=== PATIENT | female | born 1955 | race Two or more races ===

== ENCOUNTER 2017-09-05 12:06 | Inpatient (IN) | payer OTHER ==
[~2017-09-05] VITALS: Ht 157.5 cm; Wt 70.5 kg
[2017-09-05 13:06] LABS: Hemoglobin 7.8 g/dL (12.2-16.2); Mean Corpuscular Hgb Conc. 31.8 g/dL (32.0-36.0)
[2017-09-05 13:09] LABS: Hematocrit 24.4 % (36.0-46.0); Mean Corpuscular Hemoglobin 30.6 pg (28.0-32.0); Mean Corpuscular Volume 96.5 fL (80.0-100.0); Mean Platelet Volume 8.1 fL (6.9-10.8); Platelet Count (auto) 128 10^3/uL (140-450); Red Cell Distribution Width 15.9 % (11.8-14.3)
[2017-09-05 13:31] LABS: White Blood Cell 1.5 10^3/uL (4.4-10.8)
[2017-09-05 13:32] LABS: Metamyelocytes % 0; Myelocytes % 0; Promyelocytes % 0; Reactive Lymphocytes 0
[2017-09-05 13:38] LABS: Albumin 2.9 g/dL (3.4-5.0); BUN/Creatinine Ratio 12.8; Bilirubin, Total 0.4 mg/dL (0.2-1.0); Calcium 8.2 mg/dL (8.5-10.1); Potassium 3.6 mmol/L (3.5-5.1); Total Protein 6.4 g/dL (6.4-8.2)
[2017-09-05 16:12] LABS: Urine Bilirubin Negative (Negative); Urine Blood 1+ /uL (Negative); Urine Color Yellow (Yellow); Urine Glucose Normal (Normal); Urine Ketone Negative (Negative); Urine Nitrite Negative (Negative); Urine RBC <1 /hpf (0 - 4); Urine Squamous Epithelial Cell FEW /hpf (<5); Urine Urobilinogen Normal (Negative)
[2017-09-05] MEDS ORDERED: SODIUM CHLORIDE 0.9% 1,000 ML IV ONE (16:29)
[2017-09-05] MEDS ORDERED: cefTRIAXone 1GM/50ML D5W 50 ML IV ONE (16:30)
[2017-09-05] MEDS ORDERED: HYDROcodone-ACET 5/325MG TAB PO ONE (18:00)
[2017-09-05] MEDS ORDERED: TEMAZEPAM 15 MG CAP PO PRN (18:30)
[2017-09-05] MEDS ORDERED: LACTULOSE 20Gm/30ML SOLN PO PRN (18:30)
[2017-09-05] MEDS ORDERED: methylPREDNISolone SOD SUCC 40 MG/ML VL IV ONE (18:30)
[2017-09-05] MEDS ORDERED: MORPHINE SULF INJ 2 MG/ML SYRINGE 1ML IV PRN ×2 (18:30)
[2017-09-05] MEDS ORDERED: ALBUTEROL SULF 2.5 MG/0.5ML(0.5%) NEB SOLN NEB PRN (18:30)
[2017-09-05] MEDS ORDERED: LORazepam 0.5 MG TAB PO PRN (18:30)
[2017-09-05] MEDS ORDERED: ACETAMINOPHEN 500 MG TAB PO PRN (18:30)
[2017-09-05] MEDS ORDERED: PROMETHAZINE HCL 25 MG/ML 1ML IV PRN (18:30)
[2017-09-05] MEDS ORDERED: NITROGLYCERIN 0.4 MG SL TAB SL PRN (18:30)
[2017-09-05] MEDS ORDERED: HYDROcodone-ACET 5/325MG TAB PO PRN (18:30)
[2017-09-05 18:54] LABS: Burr Cells FEW; Platelet Estimate Decreased; Tear Drop Cells FEW
[2017-09-05] MEDS ORDERED: MYCO500T3 PO (18:55)
[2017-09-05] MEDS ORDERED: METH4TAB7 PO (18:55)
[2017-09-05] MEDS ORDERED: VITA400C49 PO (18:55)
[2017-09-05] MEDS ORDERED: HYDR200T36 PO (18:55)
[2017-09-05] MEDS ORDERED: PAR20T PO (18:58)
[2017-09-05] MEDS ORDERED: HYDR-391 PO (18:58)
[2017-09-05] MEDS ORDERED: AMOX250C3 PO (18:58)
[2017-09-05] MEDS ORDERED: METO-158 PO (18:58)
[2017-09-05] MEDS ORDERED: FOLI1TAB6 PO (19:04)
[2017-09-05] MEDS ORDERED: DILT180C88 PO (19:04)
[2017-09-05] MEDS ORDERED: OMEP20CA74 PO (19:04)
[2017-09-05] MEDS ORDERED: PYRI1TAB3 PO (19:04)
[2017-09-05] MEDS ORDERED: CHOL200021 PO (19:04)
[2017-09-05] MEDS ORDERED: FERR1TAB5 PO (19:04)
[2017-09-05] MEDS ORDERED: DILTIAZEM HCL 180MG ER CAP PO ONE (19:45)
[2017-09-05] MEDS: SODIUM CHLORIDE 0.9% 1,000 ML IV SCH (20:13)
[2017-09-05] MEDS: CLINDAMYCIN 600MG IV 50 ML IV SCH (22:18)
[2017-09-05] MEDS: METOPROLOL TARTRATE 50 MG TAB PO SCH (22:19)
[2017-09-06] VITALS (7 sets, daily range): BP systolic 111–143; BP diastolic 62–77
[2017-09-06] MEDS: SODIUM CHLORIDE 0.9% 1,000 ML IV SCH ×3 (04:16→15:00)
[2017-09-06 05:53] LABS: Hemoglobin 7.5 g/dL (12.2-16.2); Mean Corpuscular Volume 95.4 fL (80.0-100.0); Platelet Count (auto) 127 10^3/uL (140-450)
[2017-09-06 05:55] LABS: Mean Corpuscular Hgb Conc. 32.5 g/dL (32.0-36.0); Mean Platelet Volume 7.9 fL (6.9-10.8); Red Cell Distribution Width 15.8 % (11.8-14.3)
[2017-09-06] MEDS: CLINDAMYCIN 600MG IV 50 ML IV SCH ×3 (06:14→22:18)
[2017-09-06 06:16] LABS: Metamyelocytes % 0; Myelocytes % 0; Promyelocytes % 0; Reactive Lymphocytes 0
[2017-09-06 06:17] LABS: White Blood Cell 0.9 10^3/uL (4.4-10.8)
[2017-09-06 06:25] LABS: Albumin 2.4 g/dL (3.4-5.0); Bilirubin, Total 0.2 mg/dL (0.2-1.0); Calcium 7.7 mg/dL (8.5-10.1); Potassium 3.7 mmol/L (3.5-5.1); Total Protein 5.7 g/dL (6.4-8.2)
[2017-09-06] MEDS ORDERED: INFLUENZA QUAD 2017-2018 0.5 ML SYRG IM ONE (07:30)
[2017-09-06 08:47] LABS: Burr Cells FEW; Ovalocytes FEW; Platelet Estimate Decreased; Tear Drop Cells FEW
[2017-09-06 08:48] LABS: Large Platelets FEW
[2017-09-06] MEDS: LEVOFLOXACIN 500MG 100 ML IV SCH (09:59)
[2017-09-06] MEDS: methylPREDNISolone SOD SUCC 40 MG/ML VL IV SCH ×2 (10:00→22:18)
[2017-09-06] MEDS: METOPROLOL TARTRATE 50 MG TAB PO SCH ×2 (10:01→22:19)
[2017-09-06] MEDS: DILTIAZEM HCL 180MG ER CAP PO SCH (10:01)
[2017-09-06] MEDS ORDERED: PANTOPRAZOLE 40 MG TAB PO ONE (15:15)
[2017-09-07 05:00] VITALS: BP 147/74
[2017-09-07] MEDS: SODIUM CHLORIDE 0.9% 1,000 ML IV SCH ×2 (06:02→17:45)
[2017-09-07] MEDS: CLINDAMYCIN 600MG IV 50 ML IV SCH (06:02)
[2017-09-07 07:21] LABS: Hemoglobin 7.5 g/dL (12.2-16.2); Mean Platelet Volume 8.1 fL (6.9-10.8); Red Cell Distribution Width 15.8 % (11.8-14.3); White Blood Cell 2.2 10^3/uL (4.4-10.8)
[2017-09-07 07:24] LABS: Mean Corpuscular Hemoglobin 31.1 pg (28.0-32.0); Mean Corpuscular Hgb Conc. 32.7 g/dL (32.0-36.0); Platelet Count (auto) 190 10^3/uL (140-450)
[2017-09-07 07:35] LABS: BUN/Creatinine Ratio 17.3; Calcium 7.3 mg/dL (8.5-10.1); Magnesium 1.4 mg/dL (1.6-2.6); Potassium 3.6 mmol/L (3.5-5.1)
[2017-09-07 07:44] LABS: Albumin 2.6 g/dL (3.4-5.0); BUN/Creatinine Ratio 17.2; Bilirubin, Total 0.2 mg/dL (0.2-1.0); Calcium 7.5 mg/dL (8.5-10.1); Potassium 3.7 mmol/L (3.5-5.1); Total Protein 6.1 g/dL (6.4-8.2)
[2017-09-07 07:55] LABS: Metamyelocytes % 0; Myelocytes % 0; Promyelocytes % 0; Reactive Lymphocytes 0
[2017-09-07 09:00] VITALS: BP 145/71
[2017-09-07] MEDS: methylPREDNISolone SOD SUCC 40 MG/ML VL IV SCH ×2 (10:00→21:56)
[2017-09-07] MEDS: LEVOFLOXACIN 500MG 100 ML IV SCH (10:01)
[2017-09-07] MEDS: METOPROLOL TARTRATE 50 MG TAB PO SCH ×2 (10:01→21:56)
[2017-09-07] MEDS: PANTOPRAZOLE 40 MG TAB PO SCH (10:01)
[2017-09-07] MEDS: DILTIAZEM HCL 180MG ER CAP PO SCH (10:02)
[2017-09-07 11:02] LABS: Platelet Estimate Adequate
[2017-09-07 11:03] LABS: Burr Cells FEW; Ovalocytes FEW; Tear Drop Cells FEW
[2017-09-07 13:00] VITALS: BP 152/73
[2017-09-07] MEDS: MAGNESIUM SULFATE 1GM/100ML 100 ML IV SCH ×2 (13:02→14:33)
[2017-09-07 17:03] VITALS: BP 144/71
[2017-09-07 23:02] VITALS: BP 160/71
[2017-09-08] MEDS: cloNIDine HCL 0.1 MG TAB PO PRN ×3 (00:23→23:09)
[2017-09-08] MEDS: SODIUM CHLORIDE 0.9% 1,000 ML IV SCH ×3 (03:45→23:45)
[2017-09-08 05:33] VITALS: BP 163/70
[2017-09-08 06:08] LABS: Erythropoietin 8.9 mIU/mL (2.6-18.5)
[2017-09-08 07:04] LABS: Basophils # (auto) 0 uL; Basophils % (auto) 0.2 % (0.0-2.0); Eosinophils # (auto) 0 uL; Hemoglobin 7.1 g/dL (12.2-16.2); Lymphocytes # (auto) 0.7 uL; Mean Corpuscular Volume 94.5 fL (80.0-100.0); Monocytes # (auto) 0.6 uL; Nucleated Red Blood Cells % 0.3 %; Platelet Count (auto) 193 10^3/uL (140-450)
[2017-09-08 07:06] LABS: Hematocrit 21.6 % (36.0-46.0); Lymphocytes % (auto) 15.2 % (10.0-50.0); Mean Corpuscular Hemoglobin 30.9 pg (28.0-32.0); Mean Corpuscular Hgb Conc. 32.7 g/dL (32.0-36.0); Mean Platelet Volume 7.9 fL (6.9-10.8); Monocytes % (auto) 13.7 % (0.0-12.0); Neutrophils % (auto) 70.9 % (37.0-80.0); Red Cell Distribution Width 15.6 % (11.8-14.3); White Blood Cell 4.3 10^3/uL (4.4-10.8)
[2017-09-08 07:22] LABS: BUN/Creatinine Ratio 21.8; Calcium 7.6 mg/dL (8.5-10.1); Potassium 3.3 mmol/L (3.5-5.1)
[2017-09-08 09:00] VITALS: BP 156/75
[2017-09-08] MEDS: PANTOPRAZOLE 40 MG TAB PO SCH (10:44)
[2017-09-08] MEDS: METOPROLOL TARTRATE 50 MG TAB PO SCH ×2 (10:45→21:59)
[2017-09-08] MEDS: LEVOFLOXACIN 500MG 100 ML IV SCH (10:46)
[2017-09-08] MEDS: DILTIAZEM HCL 180MG ER CAP PO SCH (10:46)
[2017-09-08] MEDS: methylPREDNISolone SOD SUCC 40 MG/ML VL IV SCH ×2 (10:47→21:59)
[2017-09-08 11:43] VITALS: BP 157/74
[2017-09-08 17:01] VITALS: BP 148/73
[2017-09-08 21:56] VITALS: BP 159/68
[2017-09-09 05:00] VITALS: BP 179/77
[2017-09-09] MEDS: cloNIDine HCL 0.1 MG TAB PO PRN (05:43)
[2017-09-09 05:46] LABS: Hematocrit 23.7 % (36.0-46.0); Hemoglobin 7.7 g/dL (12.2-16.2); Mean Corpuscular Hemoglobin 30.8 pg (28.0-32.0); Mean Corpuscular Hgb Conc. 32.3 g/dL (32.0-36.0); Mean Corpuscular Volume 95.4 fL (80.0-100.0); Mean Platelet Volume 7.8 fL (6.9-10.8); Platelet Count (auto) 207 10^3/uL (140-450); Red Cell Distribution Width 15.6 % (11.8-14.3); White Blood Cell 6.4 10^3/uL (4.4-10.8)
[2017-09-09 05:48] LABS: Promyelocytes % 0; Reactive Lymphocytes 0
[2017-09-09 06:14] LABS: Albumin 2.3 g/dL (3.4-5.0); BUN/Creatinine Ratio 26.2; Bilirubin, Total 0.1 mg/dL (0.2-1.0); Calcium 7.1 mg/dL (8.5-10.1); Potassium 4.3 mmol/L (3.5-5.1); Total Protein 5.2 g/dL (6.4-8.2)
[2017-09-09 08:00] VITALS: BP 183/86
[2017-09-09] MEDS ORDERED: ALPRAZolam 0.5 MG TAB PO PRN (08:15)
[2017-09-09] MEDS: SODIUM CHLORIDE 0.9% 1,000 ML IV SCH ×2 (08:15→21:35)
[2017-09-09 08:53] VITALS: BP 171/75
[2017-09-09] MEDS ORDERED: hydrALAZINE HCL 20 MG/ML VL IV PRN (09:00)
[2017-09-09 09:41] LABS: Metamyelocytes % 1; Myelocytes % 1; Platelet Estimate Adequate
[2017-09-09 09:42] LABS: Burr Cells MODERATE; Schistocytes FEW; Tear Drop Cells FEW
[2017-09-09 09:43] LABS: Ovalocytes FEW
[2017-09-09] MEDS: LEVOFLOXACIN 500MG 100 ML IV SCH (10:26)
[2017-09-09] MEDS: DILTIAZEM HCL 180MG ER CAP PO SCH (10:27)
[2017-09-09] MEDS: PANTOPRAZOLE 40 MG TAB PO SCH (10:28)
[2017-09-09] MEDS: METOPROLOL TARTRATE 50 MG TAB PO SCH ×2 (10:28→22:13)
[2017-09-09 12:00] VITALS: BP 152/75
[2017-09-09 13:06] LABS: Haptoglobin 271 mg/dL (34-200)
[2017-09-09 17:00] VITALS: BP 114/58
[2017-09-09 22:00] VITALS: BP 151/76
[2017-09-10 05:00] VITALS: BP 156/71
[2017-09-10 06:03] LABS: Mean Corpuscular Hgb Conc. 32.3 g/dL (32.0-36.0)
[2017-09-10 06:05] LABS: Hematocrit 25.8 % (36.0-46.0); Hemoglobin 8.3 g/dL (12.2-16.2); Mean Corpuscular Hemoglobin 30.2 pg (28.0-32.0); Mean Corpuscular Volume 93.5 fL (80.0-100.0); Mean Platelet Volume 7.6 fL (6.9-10.8); Platelet Count (auto) 240 10^3/uL (140-450); Red Cell Distribution Width 15.6 % (11.8-14.3); White Blood Cell 11.4 10^3/uL (4.4-10.8)
[2017-09-10 06:12] LABS: Promyelocytes % 0; Reactive Lymphocytes 0
[2017-09-10 06:39] LABS: Albumin 2.3 g/dL (3.4-5.0); BUN/Creatinine Ratio 29.1; Bilirubin, Total 0.2 mg/dL (0.2-1.0); Calcium 7.3 mg/dL (8.5-10.1); Potassium 4.2 mmol/L (3.5-5.1); Total Protein 4.9 g/dL (6.4-8.2)
[2017-09-10 06:40] LABS: Hypersegmented Neutrophils Present; Metamyelocytes % 4; Myelocytes % 1; Platelet Estimate Adequate; Schistocytes FEW
[2017-09-10 06:41] LABS: Ovalocytes FEW; Tear Drop Cells FEW
[2017-09-10 09:00] VITALS: BP 159/71
[2017-09-10] MEDS ORDERED: fentaNYL CITRATE 100 MCG/2 ML VL IV ONE (09:00)
[2017-09-10] MEDS ORDERED: MIDAZOLAM HCL 5 MG/ML-1ML VIAL IV ONE (09:00)
[2017-09-10] MEDS ORDERED: NALOXONE HCL 0.4 MG/ML VIAL ONE (09:18)
[2017-09-10] MEDS ORDERED: MIDAZOLAM HCL 1MG/1ML-2 ML VIAL ONE (09:19)
[2017-09-10] MEDS ORDERED: FLUMAZENIL 0.1 MG/ML INJ 10ML MDV IV ONE (09:19)
[2017-09-10] MEDS ORDERED: BENZOCAINE (DENTAL) 20 % SPRAY 60ML MT ONE (09:23)
[2017-09-10] MEDS ORDERED: LIDOCAINE VISCOUS 2% 15ML UD ONE (09:23)
[2017-09-10] MEDS: METOPROLOL TARTRATE 50 MG TAB PO SCH (10:00)
[2017-09-10] MEDS: SODIUM CHLORIDE 0.9% 1,000 ML IV SCH (10:55)
[2017-09-10 11:10] LABS: Albumin 2.8 g/dL (2.9-4.4); Alpha-1-Globulin 0.4 g/dL (0.0-0.4); Gamma Globulin 0.4 g/dL (0.4-1.8); Protein Total Serum 5.2 g/dL (6.0-8.5)
[2017-09-10 13:00] VITALS: BP 151/77
[2017-09-10] MEDS: LEVOFLOXACIN 500MG 100 ML IV SCH (13:01)
[2017-09-10] MEDS: DILTIAZEM HCL 180MG ER CAP PO SCH (13:02)
[2017-09-10] MEDS: PANTOPRAZOLE 40 MG TAB PO SCH (13:02)
[2017-09-10] MEDS ORDERED: LEVO250T45 PO (13:22)
[2017-09-10 13:53] LABS: Vitamin B12 886 pg/mL (211-911)
[2017-09-10 13:58] LABS: Temperature: 21.5 C (20.0-25.0)
[2017-09-10 15:27] VITALS: BP 155/71
[2017-09-10 16:15] VITALS: BP 155/71
== END 2017-09-10 16:15 | disposition home or self-care (01) | DRG 808 ==
LOC: ER 12:06 → TELE 12:07 → TELE-WESTW 20:30
PROVIDERS: ADMIT Internal Medicine; ATTEND Internal Medicine
DX: D61.810 Antineoplastic chemotherapy induced pancytopenia (principal); N17.0 Acute kidney failure with tubular necrosis; I38 Endocarditis, valve unspecified; M32.9 Systemic lupus erythematosus, unspecified; E44.0 Moderate protein-calorie malnutrition; N18.3 Chronic kidney disease, stage 3 (moderate); N39.0 Urinary tract infection, site not specified; E78.5 Hyperlipidemia, unspecified; M79.7 Fibromyalgia; T45.1X5A Adverse effect of antineoplastic and immunosuppressive drugs, initial encounter; K21.9 Gastro-esophageal reflux disease without esophagitis; D63.8 Anemia in other chronic diseases classified elsewhere; T38.0X5A Adverse effect of glucocorticoids and synthetic analogues, initial encounter; K04.7 Periapical abscess without sinus; I35.1 Nonrheumatic aortic (valve) insufficiency; B96.1 Klebsiella pneumoniae [K. pneumoniae] as the cause of diseases classified elsewhere; M06.9 Rheumatoid arthritis, unspecified; Z90.49 Acquired absence of other specified parts of digestive tract; Z90.710 Acquired absence of both cervix and uterus; Z88.8 Allergy status to other drugs, medicaments and biological substances; Z68.28 Body mass index [BMI] 28.0-28.9, adult; Z82.3 Family history of stroke; Z82.49 Family history of ischemic heart disease and other diseases of the circulatory system; Z83.3 Family history of diabetes mellitus
CPT/HCPCS: 36415; 71020; 80048; 80053; 80061; 81001; 82607; 82668; 82728; 82746; 82784; 83010; 83540; 83550; 83605; 83615; 83735; 84155; 84165; 84439; 84443; 84484; 85007; 85025; 85027; 85045; 85652; 86334; 86850; 86880; 86885; 86900; 86901; 86920; 87040; 87086; 87088; 87186; 93005; 93306; 93312; 94761; 96365; 96375; 99152; J0696; J1956; J2250; J3490

== ENCOUNTER 2017-10-27 15:25 | Inpatient (IN) | payer OTHER ==
[~2017-10-27] VITALS: Ht 157.5 cm; Wt 59.3 kg
[~2017-10-27 15:25] MED LIST: AMOX250C3 PO; CHOL200021 PO; DILT180C88 PO; FERR1TAB5 PO; FOLI1TAB6 PO; HYDR-392 PO; HYDR200T36 PO; LEVO250T45 PO; METH4TAB7 PO; METO-158 PO; MYCO500T3 PO; OMEP20CA74 PO; PAR20T PO; PYRI1TAB3 PO; VITA400C49 PO
[2017-10-27] MEDS: AZITHROMYCIN 500MG/ 250ML 250 ML IV ONE ×2 (16:23→17:58)
[2017-10-27 17:14] LABS: Hematocrit 32.8 % (36.0-46.0); Hemoglobin 10.3 g/dL (12.2-16.2); Mean Corpuscular Hemoglobin 30.1 pg (28.0-32.0); Mean Corpuscular Hgb Conc. 31.3 g/dL (32.0-36.0); Mean Corpuscular Volume 96.3 fL (80.0-100.0); Platelet Count (auto) 186 10^3/uL (140-450); Red Blood Cells 3.41 10^6/uL (4.0-5.20); Red Cell Distribution Width 17.5 % (11.8-14.3); White Blood Cell 10.3 10^3/uL (4.4-10.8)
[2017-10-27 17:15] LABS: Basophils % (manual) 0 (0.0-2.0); Blast Cells 0; Eosinophils % (manual) 0 (0-7); Metamyelocytes % 0; Myelocytes % 0; Promyelocytes % 0; Reactive Lymphocytes 0
[2017-10-27 17:30] LABS: Albumin 2.2 g/dL (3.4-5.0); Magnesium 1.3 mg/dL (1.6-2.6); Potassium 3.6 mmol/L (3.5-5.1)
[2017-10-27 17:32] LABS: BUN/Creatinine Ratio 17.5
[2017-10-27 17:37] LABS: Bilirubin, Total 0.5 mg/dL (0.2-1.0); Total Protein 6.4 g/dL (6.4-8.2)
[2017-10-27 17:52] LABS: Band Neutrophils % (manual) 5; Lymphocytes % (manual) 4 (10.0-50.0); Monocytes % (manual) 1 (0-12)
[2017-10-27] MEDS ORDERED: PIPERACILLIN-TAZOB 3.375GM 50 ML IV ONE (19:15)
[2017-10-27] MEDS ORDERED: DEXTROSE 50% SYRINGE 50 ML IV ONE (19:53)
[2017-10-27] MEDS ORDERED: ONDANSETRON HCL 4 MG/2 ML VIAL ONE (20:03)
[2017-10-27] MEDS ORDERED: DEXTROSE (50%) 50ML SYRG IV ONE (20:30)
[2017-10-27] MEDS ORDERED: HYDROcodone-ACET 5/325MG TAB PO PRN (21:00)
[2017-10-27] MEDS ORDERED: FUROSEMIDE 20 MG/2 ML VIAL IV ONE (21:15)
[2017-10-27] MEDS ORDERED: IPRATROPIUM BROM 0.5 MG/2.5ML INH SOL NEB ONE (21:45)
[2017-10-27] MEDS ORDERED: ALBUTEROL SULF 2.5 MG/0.5ML(0.5%) NEB SOLN NEB ONE (21:45)
[2017-10-27] MEDS ORDERED: DILT240C PO (21:59)
[2017-10-27] MEDS ORDERED: ALPR0.25 PO (21:59)
[2017-10-27] MEDS ORDERED: CHOL200021 PO (21:59)
[2017-10-27] MEDS ORDERED: PYRI1TAB3 PO (21:59)
[2017-10-27] MEDS: HYDROXYCHLOROQUINE SULFATE 200 MG TAB PO SCH (22:00)
[2017-10-27] MEDS: METOPROLOL TARTRATE 50 MG TAB PO SCH (22:00)
[2017-10-28] VITALS (8 sets, daily range): BP systolic 116–156; BP diastolic 65–79
[2017-10-28] MEDS: METOPROLOL TARTRATE 50 MG TAB PO SCH ×2 (00:57→21:35)
[2017-10-28] MEDS: ONDANSETRON HCL 4 MG/2 ML VIAL IV PRN ×2 (01:57→18:21)
[2017-10-28] MEDS: ACETAMINOPHEN 500 MG TAB PO PRN (04:06)
[2017-10-28 05:39] LABS: Basophils # (auto) 0 uL; Basophils % (auto) 0.3 % (0.0-2.0); Eosinophils # (auto) 0 uL; Eosinophils % (auto) 0.3 % (0.0-7.0); Hematocrit 42.7 % (36.0-46.0); Hemoglobin 14.4 g/dL (12.2-16.2); Lymphocytes # (auto) 0.6 uL; Lymphocytes % (auto) 6.5 % (10.0-50.0); Mean Corpuscular Hemoglobin 31.5 pg (28.0-32.0); Mean Corpuscular Hgb Conc. 33.8 g/dL (32.0-36.0); Mean Corpuscular Volume 93.4 fL (80.0-100.0); Monocytes # (auto) 0.4 uL; Neutrophils # (auto) 8.4 uL; Neutrophils % (auto) 88.9 % (37.0-80.0); Nucleated Red Blood Cells % 0.5 %; Platelet Count (auto) 211 10^3/uL (140-450); Red Blood Cells 4.57 10^6/uL (4.0-5.20); White Blood Cell 9.4 10^3/uL (4.4-10.8)
[2017-10-28 05:55] LABS: BUN/Creatinine Ratio 20.5; Calcium 8.7 mg/dL (8.5-10.1); Potassium 4.3 mmol/L (3.5-5.1)
[2017-10-28] MEDS: ALBUTEROL SULF 2.5 MG/0.5ML(0.5%) NEB SOLN NEB SCH ×5 (08:50→19:21)
[2017-10-28] MEDS: IPRATROPIUM BROM 0.5 MG/2.5ML INH SOL NEB SCH ×5 (08:50→19:21)
[2017-10-28] MEDS: FERROUS SULFATE 325 MG TAB PO SCH ×2 (09:40→18:00)
[2017-10-28] MEDS: cefTRIAXone 1GM/10ml IVPUSH 10 ML IV SCH (09:40)
[2017-10-28] MEDS: FOLIC ACID 1 MG TAB PO SCH (09:40)
[2017-10-28] MEDS: PARoxetine 20 MG TAB PO SCH (09:41)
[2017-10-28] MEDS ORDERED: DILTIAZEM HCL 180MG ER CAP PO SCH (10:00)
[2017-10-28] MEDS: AZITHROMYCIN 500MG/ 250ML 250 ML IV SCH (18:21)
[2017-10-28] MEDS: HYDROXYCHLOROQUINE SULFATE 200 MG TAB PO SCH (21:34)
[2017-10-28] MEDS: DILTIAZEM HCL 180MG ER CAP PO SCH (21:36)
[2017-10-29 05:29] VITALS: BP 107/56
[2017-10-29] MEDS: ALBUTEROL SULF 2.5 MG/0.5ML(0.5%) NEB SOLN NEB SCH ×3 (06:06→19:35)
[2017-10-29] MEDS: IPRATROPIUM BROM 0.5 MG/2.5ML INH SOL NEB SCH ×3 (06:06→19:35)
[2017-10-29 08:00] VITALS: BP 110/53
[2017-10-29] MEDS: FERROUS SULFATE 325 MG TAB PO SCH ×2 (08:00→18:00)
[2017-10-29 09:00] VITALS: BP 110/53
[2017-10-29] MEDS: FOLIC ACID 1 MG TAB PO SCH (09:31)
[2017-10-29] MEDS: PARoxetine 20 MG TAB PO SCH (09:31)
[2017-10-29] MEDS: METOPROLOL TARTRATE 50 MG TAB PO SCH ×2 (09:32→21:19)
[2017-10-29] MEDS: cefTRIAXone 1GM/10ml IVPUSH 10 ML IV SCH (09:32)
[2017-10-29 13:00] VITALS: BP 130/64
[2017-10-29] MEDS: ACETAMINOPHEN 500 MG TAB PO PRN (14:45)
[2017-10-29 17:46] VITALS: BP 109/54
[2017-10-29] MEDS: AZITHROMYCIN 500MG/ 250ML 250 ML IV SCH (18:22)
[2017-10-29] MEDS: HYDROXYCHLOROQUINE SULFATE 200 MG TAB PO SCH (21:14)
[2017-10-29] MEDS: DILTIAZEM HCL 180MG ER CAP PO SCH (21:20)
[2017-10-29] MEDS: LORazepam 2MG/ML-1ML VIAL IV PRN (22:58)
[2017-10-29 22:59] VITALS: BP 115/51
[2017-10-30 04:52] VITALS: BP 108/60
[2017-10-30] MEDS: ALBUTEROL SULF 2.5 MG/0.5ML(0.5%) NEB SOLN NEB SCH ×4 (05:50→19:06)
[2017-10-30] MEDS: IPRATROPIUM BROM 0.5 MG/2.5ML INH SOL NEB SCH ×4 (05:50→19:06)
[2017-10-30] MEDS: FERROUS SULFATE 325 MG TAB PO SCH ×3 (07:35→17:11)
[2017-10-30 07:55] VITALS: BP 130/66
[2017-10-30 08:00] VITALS: BP 130/66
[2017-10-30] MEDS: cefTRIAXone 1GM/10ml IVPUSH 10 ML IV SCH ×2 (08:08→08:46)
[2017-10-30] MEDS: FOLIC ACID 1 MG TAB PO SCH (09:26)
[2017-10-30] MEDS: PARoxetine 20 MG TAB PO SCH (09:27)
[2017-10-30] MEDS: METOPROLOL TARTRATE 50 MG TAB PO SCH ×2 (09:27→22:06)
[2017-10-30 14:05] VITALS: BP 127/54
[2017-10-30] MEDS: AZITHROMYCIN 500MG/ 250ML 250 ML IV SCH (17:12)
[2017-10-30 17:18] VITALS: BP 126/62
[2017-10-30] MEDS: DILTIAZEM HCL 180MG ER CAP PO SCH (22:05)
[2017-10-30] MEDS: HYDROXYCHLOROQUINE SULFATE 200 MG TAB PO SCH (22:06)
[2017-10-30 23:09] VITALS: BP 142/60
[2017-10-31] VITALS (7 sets, daily range): BP systolic 117–149; BP diastolic 68–76
[2017-10-31] MEDS: LORazepam 2MG/ML-1ML VIAL IV PRN (01:32)
[2017-10-31] MEDS: ALBUTEROL SULF 2.5 MG/0.5ML(0.5%) NEB SOLN NEB SCH ×3 (06:50→18:47)
[2017-10-31] MEDS: IPRATROPIUM BROM 0.5 MG/2.5ML INH SOL NEB SCH ×3 (06:50→18:47)
[2017-10-31 06:58] LABS: Basophils # (auto) 0 uL; Basophils % (auto) 0.6 % (0.0-2.0); Eosinophils # (auto) 0.1 uL; Eosinophils % (auto) 2.7 % (0.0-7.0); Hematocrit 25.9 % (36.0-46.0); Hemoglobin 8.6 g/dL (12.2-16.2); Lymphocytes # (auto) 0.8 uL; Lymphocytes % (auto) 15.7 % (10.0-50.0); Mean Corpuscular Hemoglobin 30.1 pg (28.0-32.0); Mean Corpuscular Hgb Conc. 33.3 g/dL (32.0-36.0); Mean Corpuscular Volume 90.6 fL (80.0-100.0); Monocytes # (auto) 0.8 uL; Monocytes % (auto) 14.2 % (0.0-12.0); Neutrophils # (auto) 3.6 uL; Neutrophils % (auto) 66.8 % (37.0-80.0); Nucleated Red Blood Cells % 0.1 %; Platelet Count (auto) 214 10^3/uL (140-450); Red Blood Cells 2.85 10^6/uL (4.0-5.20); Red Cell Distribution Width 16.7 % (11.8-14.3); White Blood Cell 5.3 10^3/uL (4.4-10.8)
[2017-10-31 07:25] LABS: BUN/Creatinine Ratio 20.8; Calcium 8.4 mg/dL (8.5-10.1); Potassium 3.3 mmol/L (3.5-5.1)
[2017-10-31] MEDS: FERROUS SULFATE 325 MG TAB PO SCH ×2 (08:09→17:22)
[2017-10-31] MEDS: cefTRIAXone 1GM/10ml IVPUSH 10 ML IV SCH (08:09)
[2017-10-31] MEDS: FOLIC ACID 1 MG TAB PO SCH (09:17)
[2017-10-31] MEDS: PARoxetine 20 MG TAB PO SCH (09:17)
[2017-10-31] MEDS: METOPROLOL TARTRATE 50 MG TAB PO SCH ×2 (09:17→21:31)
[2017-10-31] MEDS ORDERED: FUROSEMIDE 40 MG/4 ML VIAL IV ONE (11:30)
[2017-10-31] MEDS ORDERED: POTASSIUM CHL 20 Meq TABLET PO ONE (11:30)
[2017-10-31 15:21] LABS: Urine Bacteria NONE SEEN /hpf (None Seen); Urine Blood Negative /uL (Negative); Urine Specific Gravity 1.005 (1.001-1.035); Urine WBC <1 /hpf (0 - 5)
[2017-10-31] MEDS: AZITHROMYCIN 500MG/ 250ML 250 ML IV SCH (17:22)
[2017-10-31] MEDS: ONDANSETRON HCL 4 MG/2 ML VIAL IV PRN (18:13)
[2017-10-31 19:31] LABS: Protein, Urine 36.6 mg/dL (0.0-11.9)
[2017-10-31] MEDS: HYDROXYCHLOROQUINE SULFATE 200 MG TAB PO SCH (21:31)
[2017-10-31] MEDS: DILTIAZEM HCL 180MG ER CAP PO SCH (21:32)
[2017-10-31 21:51] LABS: % Iron Saturation 6.7 % (15-50)
[2017-11-01 05:18] VITALS: BP 135/70
[2017-11-01 06:50] LABS: Calcium 9.7 mg/dL (8.5-10.1); Potassium 3.6 mmol/L (3.5-5.1)
[2017-11-01] MEDS: IPRATROPIUM BROM 0.5 MG/2.5ML INH SOL NEB SCH ×3 (06:55→18:00)
[2017-11-01] MEDS: ALBUTEROL SULF 2.5 MG/0.5ML(0.5%) NEB SOLN NEB SCH ×3 (06:55→18:00)
[2017-11-01 08:40] VITALS: BP 116/65
[2017-11-01] MEDS: cefTRIAXone 1GM/10ml IVPUSH 10 ML IV SCH (09:00)
[2017-11-01] MEDS: METOPROLOL TARTRATE 50 MG TAB PO SCH ×2 (09:34→21:35)
[2017-11-01] MEDS: FERROUS SULFATE 325 MG TAB PO SCH ×2 (09:36→18:32)
[2017-11-01] MEDS: PARoxetine 20 MG TAB PO SCH (09:36)
[2017-11-01] MEDS: FOLIC ACID 1 MG TAB PO SCH (09:36)
[2017-11-01] MEDS: ONDANSETRON HCL 4 MG/2 ML VIAL IV PRN ×2 (09:37→19:53)
[2017-11-01 13:00] VITALS: BP 139/69
[2017-11-01] MEDS ORDERED: FUROSEMIDE 40 MG/4 ML VIAL IV ONE (14:15)
[2017-11-01] MEDS: AZITHROMYCIN 250 MG TAB PO SCH (15:11)
[2017-11-01 16:45] VITALS: BP 134/74
[2017-11-01] MEDS: ACETAMINOPHEN 500 MG TAB PO PRN (19:53)
[2017-11-01] MEDS: HYDROXYCHLOROQUINE SULFATE 200 MG TAB PO SCH (21:35)
[2017-11-01] MEDS: DILTIAZEM HCL 180MG ER CAP PO SCH (21:36)
[2017-11-01 22:00] VITALS: BP 137/74
[2017-11-02 05:30] VITALS: BP 123/59
[2017-11-02 06:52] LABS: BUN/Creatinine Ratio 17.9; Calcium 9.8 mg/dL (8.5-10.1)
[2017-11-02] MEDS: IPRATROPIUM BROM 0.5 MG/2.5ML INH SOL NEB SCH ×3 (06:58→11:49)
[2017-11-02] MEDS: ALBUTEROL SULF 2.5 MG/0.5ML(0.5%) NEB SOLN NEB SCH ×3 (06:58→11:49)
[2017-11-02 08:00] VITALS: BP 127/65
[2017-11-02 08:07] LABS: Basophils # (auto) 0 uL; Basophils % (auto) 0.8 % (0.0-2.0); Eosinophils # (auto) 0.4 uL; Eosinophils % (auto) 7.9 % (0.0-7.0); Hematocrit 27.2 % (36.0-46.0); Hemoglobin 8.8 g/dL (12.2-16.2); Lymphocytes # (auto) 1.4 uL; Lymphocytes % (auto) 24.6 % (10.0-50.0); Mean Corpuscular Hemoglobin 29.5 pg (28.0-32.0); Mean Corpuscular Hgb Conc. 32.6 g/dL (32.0-36.0); Mean Corpuscular Volume 90.7 fL (80.0-100.0); Monocytes # (auto) 0.7 uL; Monocytes % (auto) 13.1 % (0.0-12.0); Neutrophils % (auto) 53.6 % (37.0-80.0); Nucleated Red Blood Cells % 0.1 %; Platelet Count (auto) 288 10^3/uL (140-450); Red Blood Cells 2.99 10^6/uL (4.0-5.20); Red Cell Distribution Width 16.5 % (11.8-14.3); White Blood Cell 5.6 10^3/uL (4.4-10.8)
[2017-11-02] MEDS: cefTRIAXone 1GM/10ml IVPUSH 10 ML IV SCH (08:31)
[2017-11-02] MEDS: FERROUS SULFATE 325 MG TAB PO SCH (08:31)
[2017-11-02 09:24] VITALS: BP 127/65
[2017-11-02] MEDS ORDERED: FUROSEMIDE 40 MG TAB PO SCH (10:00)
[2017-11-02] MEDS: AZITHROMYCIN 250 MG TAB PO SCH (10:17)
[2017-11-02] MEDS: FOLIC ACID 1 MG TAB PO SCH (10:17)
[2017-11-02] MEDS: PARoxetine 20 MG TAB PO SCH (10:17)
[2017-11-02] MEDS: METOPROLOL TARTRATE 50 MG TAB PO SCH (10:18)
[2017-11-02 12:03] VITALS: BP 124/63
[2017-11-02] MEDS ORDERED: FUROSEMIDE 40 MG/4 ML VIAL IV ONE (12:45)
[2017-11-02 16:40] VITALS: BP 122/65
[2017-11-02 16:56] VITALS: BP 123/62
== END 2017-11-02 17:47 | disposition home or self-care (01) | DRG 871 ==
LOC: ER 15:28 → OVERFLOW 22:30 → EAST 10-28 01:40
PROVIDERS: ADMIT Nurse Practitioner Family; ATTEND Internal Medicine
DX: A41.9 Sepsis, unspecified organism (principal); I50.43 Acute on chronic combined systolic (congestive) and diastolic (congestive) heart failure; J96.00 Acute respiratory failure, unspecified whether with hypoxia or hypercapnia; N17.0 Acute kidney failure with tubular necrosis; E44.0 Moderate protein-calorie malnutrition; E11.22 Type 2 diabetes mellitus with diabetic chronic kidney disease; J18.9 Pneumonia, unspecified organism; M32.9 Systemic lupus erythematosus, unspecified; I13.0 Hypertensive heart and chronic kidney disease with heart failure and stage 1 through stage 4 chronic kidney disease, or unspecified chronic kidney disease; N18.3 Chronic kidney disease, stage 3 (moderate); D50.9 Iron deficiency anemia, unspecified; K21.9 Gastro-esophageal reflux disease without esophagitis; M06.9 Rheumatoid arthritis, unspecified; Z79.899 Other long term (current) drug therapy; Z82.49 Family history of ischemic heart disease and other diseases of the circulatory system; Z90.710 Acquired absence of both cervix and uterus; Z90.49 Acquired absence of other specified parts of digestive tract; Z71.89 Other specified counseling; Z68.23 Body mass index [BMI] 23.0-23.9, adult
CPT/HCPCS: 36415; 36600; 71045; 71046; 76775; 80048; 80053; 81001; 82570; 82728; 82805; 82962; 83010; 83516; 83540; 83550; 83605; 83735; 83880; 84100; 84156; 84300; 84484; 84550; 85007; 85025; 85027; 85045; 85652; 86160; 86225; 86235; 87040; 87400; 93005; 94640; 94761; 96365; 96367; 96375; 97116; 97530; J2405

== ENCOUNTER 2017-11-09 16:53 | Inpatient (IN) | payer OTHER ==
[~2017-11-09] VITALS: Ht 157.5 cm; Wt 59.9 kg
[~2017-11-09 16:53] MED LIST changes: +ALPR0.25 PO; -DILT180C88 PO; +DILT240C PO
[2017-11-09 18:22] LABS: Urine Bacteria FEW /hpf (None Seen); Urine Blood Negative /uL (Negative); Urine Specific Gravity 1.009 (1.001-1.035); Urine WBC 2 /hpf (0 - 5)
[2017-11-09 18:23] LABS: Basophils # (auto) 0.1 uL; Basophils % (auto) 2.5 % (0.0-2.0); Eosinophils # (auto) 0 uL; Eosinophils % (auto) 0.6 % (0.0-7.0); Hematocrit 30.8 % (36.0-46.0); Hemoglobin 9.8 g/dL (12.2-16.2); Lymphocytes # (auto) 1.6 uL; Lymphocytes % (auto) 30.6 % (10.0-50.0); Mean Corpuscular Hemoglobin 29.6 pg (28.0-32.0); Mean Corpuscular Hgb Conc. 31.6 g/dL (32.0-36.0); Mean Corpuscular Volume 93.4 fL (80.0-100.0); Monocytes # (auto) 0.8 uL; Monocytes % (auto) 16.1 % (0.0-12.0); Neutrophils # (auto) 2.6 uL; Neutrophils % (auto) 50.2 % (37.0-80.0); Nucleated Red Blood Cells % 0.3 %; Platelet Count (auto) 318 10^3/uL (140-450); Red Cell Distribution Width 16.9 % (11.8-14.3); White Blood Cell 5.1 10^3/uL (4.4-10.8)
[2017-11-09 18:39] LABS: Albumin 2.8 g/dL (3.4-5.0); BUN/Creatinine Ratio 12.6; Potassium 5.4 mmol/L (3.5-5.1)
[2017-11-09 18:43] LABS: Bilirubin, Total 0.2 mg/dL (0.2-1.0); Total Protein 7.3 g/dL (6.4-8.2)
[2017-11-09] MEDS ORDERED: ACETAMINOPHEN 325 MG TAB PO PRN (22:15)
[2017-11-09] MEDS ORDERED: ALPRAZolam 0.25 MG TAB PO PRN (22:15)
[2017-11-09] MEDS ORDERED: NITROGLYCERIN 0.4 MG SL TAB SL PRN (22:15)
[2017-11-09] MEDS ORDERED: TEMAZEPAM 15 MG CAP PO PRN (22:15)
[2017-11-09] MEDS ORDERED: LEVOFLOXACIN 250MG 50 ML IV ONE (22:15)
[2017-11-09] MEDS ORDERED: LEVOFLOXACIN 250MG 50 ML IV SCH (22:15)
[2017-11-09] MEDS ORDERED: ONDANSETRON HCL 4 MG/2 ML VIAL IV PRN (22:15)
[2017-11-09] MEDS ORDERED: MORPHINE SULF INJ 2 MG/ML SYRINGE 1ML IV PRN (22:15)
[2017-11-09 23:40] VITALS: BP 142/67
[2017-11-10 00:18] VITALS: BP 142/67
[2017-11-10] MEDS: SODIUM CHLORIDE 0.9% 1,000 ML IV SCH ×2 (00:52→14:41)
[2017-11-10 05:41] LABS: Basophils # (auto) 0.1 uL; Eosinophils # (auto) 0 uL; Hemoglobin 8.2 g/dL (12.2-16.2); Lymphocytes # (auto) 1.6 uL; Monocytes # (auto) 0.8 uL
[2017-11-10 05:43] LABS: Basophils % (auto) 1.4 % (0.0-2.0); Hematocrit 25.2 % (36.0-46.0); Lymphocytes % (auto) 33.7 % (10.0-50.0); Mean Corpuscular Hemoglobin 29.8 pg (28.0-32.0); Mean Corpuscular Hgb Conc. 32.3 g/dL (32.0-36.0); Mean Corpuscular Volume 92.3 fL (80.0-100.0); Monocytes % (auto) 15.9 % (0.0-12.0); Neutrophils # (auto) 2.3 uL; Platelet Count (auto) 250 10^3/uL (140-450); Red Blood Cells 2.74 10^6/uL (4.0-5.20); Red Cell Distribution Width 16.5 % (11.8-14.3); White Blood Cell 4.8 10^3/uL (4.4-10.8)
[2017-11-10 05:44] VITALS: BP 105/62
[2017-11-10 06:04] LABS: Albumin 2.4 g/dL (3.4-5.0); BUN/Creatinine Ratio 12.4; Bilirubin, Total 0.2 mg/dL (0.2-1.0); Calcium 8.1 mg/dL (8.5-10.1); Potassium 4.8 mmol/L (3.5-5.1); Total Protein 6.1 g/dL (6.4-8.2)
[2017-11-10] MEDS: MYCOPHENOLATE 500 MG TAB PO SCH ×3 (06:54→21:48)
[2017-11-10 09:00] VITALS: BP 142/68
[2017-11-10] MEDS ORDERED: cefTRIAXone 1GM/10ml IVPUSH 10 ML IV SCH (09:00)
[2017-11-10] MEDS: ASPirin 81 mg TAB PO SCH (10:52)
[2017-11-10] MEDS: METOPROLOL TARTRATE 50 MG TAB PO SCH ×2 (10:53→21:48)
[2017-11-10] MEDS: PANTOPRAZOLE 40 MG TAB PO SCH (10:53)
[2017-11-10] MEDS: FOLIC ACID 1 MG TAB PO SCH (10:54)
[2017-11-10] MEDS: HYDROXYCHLOROQUINE SULFATE 200 MG TAB PO SCH (10:54)
[2017-11-10] MEDS: DILTIAZEM HCL 180MG ER CAP PO SCH (10:55)
[2017-11-10] MEDS: HEPARIN SODIUM (PORCINE) 5000 UNITS/ML 1ML VIAL SC SCH ×2 (10:57→21:46)
[2017-11-10 13:00] VITALS: BP 116/64
[2017-11-10 17:00] VITALS: BP 109/64
[2017-11-10 22:03] VITALS: BP 118/65
[2017-11-11 05:00] VITALS: BP 107/57
[2017-11-11 05:11] LABS: Basophils # (auto) 0.1 uL; Eosinophils # (auto) 0 uL; Hemoglobin 8.3 g/dL (12.2-16.2); Lymphocytes # (auto) 1.6 uL; Monocytes # (auto) 0.6 uL; Neutrophils # (auto) 2.1 uL
[2017-11-11 05:14] LABS: Basophils % (auto) 2.9 % (0.0-2.0); Eosinophils % (auto) 0.1 % (0.0-7.0); Hematocrit 25.9 % (36.0-46.0); Lymphocytes % (auto) 35.4 % (10.0-50.0); Mean Corpuscular Hemoglobin 29.6 pg (28.0-32.0); Mean Corpuscular Hgb Conc. 31.8 g/dL (32.0-36.0); Mean Corpuscular Volume 93.1 fL (80.0-100.0); Monocytes % (auto) 14.3 % (0.0-12.0); Neutrophils % (auto) 47.3 % (37.0-80.0); Nucleated Red Blood Cells % 0.2 %; Platelet Count (auto) 236 10^3/uL (140-450); Red Blood Cells 2.79 10^6/uL (4.0-5.20); Red Cell Distribution Width 16.8 % (11.8-14.3); White Blood Cell 4.5 10^3/uL (4.4-10.8)
[2017-11-11] MEDS: MYCOPHENOLATE 500 MG TAB PO SCH ×2 (05:32→14:00)
[2017-11-11 05:35] LABS: Albumin 2.5 g/dL (3.4-5.0); Bilirubin, Total 0.2 mg/dL (0.2-1.0); Calcium 8.3 mg/dL (8.5-10.1); Potassium 4.7 mmol/L (3.5-5.1); Total Protein 6.2 g/dL (6.4-8.2)
[2017-11-11 09:00] VITALS: BP 133/69
[2017-11-11] MEDS: PANTOPRAZOLE 40 MG TAB PO SCH (10:16)
[2017-11-11] MEDS: ASPirin 81 mg TAB PO SCH (10:16)
[2017-11-11] MEDS: DILTIAZEM HCL 180MG ER CAP PO SCH (10:16)
[2017-11-11] MEDS: FOLIC ACID 1 MG TAB PO SCH (10:17)
[2017-11-11] MEDS: HYDROXYCHLOROQUINE SULFATE 200 MG TAB PO SCH (10:17)
[2017-11-11] MEDS: METOPROLOL TARTRATE 50 MG TAB PO SCH (10:17)
[2017-11-11] MEDS: HEPARIN SODIUM (PORCINE) 5000 UNITS/ML 1ML VIAL SC SCH (10:18)
[2017-11-11 12:19] VITALS: BP 133/69
[2017-11-11 12:36] VITALS: BP 133/69
[2017-11-11 13:00] VITALS: BP 130/70
== END 2017-11-11 13:45 | disposition home or self-care (01) | DRG 683 ==
LOC: ER 17:00 → TELE 17:01 → TELE-WESTW 23:34
PROVIDERS: ADMIT Internal Medicine; ATTEND Nurse Practitioner
DX: N17.9 Acute kidney failure, unspecified (principal); E87.2 Acidosis; E11.22 Type 2 diabetes mellitus with diabetic chronic kidney disease; M32.9 Systemic lupus erythematosus, unspecified; I12.0 Hypertensive chronic kidney disease with stage 5 chronic kidney disease or end stage renal disease; E87.5 Hyperkalemia; N39.0 Urinary tract infection, site not specified; D64.9 Anemia, unspecified; N18.6 End stage renal disease; E66.9 Obesity, unspecified; F41.9 Anxiety disorder, unspecified; K21.9 Gastro-esophageal reflux disease without esophagitis; F32.9 Major depressive disorder, single episode, unspecified; R01.1 Cardiac murmur, unspecified; R74.8 Abnormal levels of other serum enzymes; M06.9 Rheumatoid arthritis, unspecified; M19.90 Unspecified osteoarthritis, unspecified site; Z82.3 Family history of stroke; Z68.24 Body mass index [BMI] 24.0-24.9, adult; Z82.49 Family history of ischemic heart disease and other diseases of the circulatory system; Z83.3 Family history of diabetes mellitus; Z90.710 Acquired absence of both cervix and uterus; Z90.49 Acquired absence of other specified parts of digestive tract; Z88.8 Allergy status to other drugs, medicaments and biological substances; Z79.899 Other long term (current) drug therapy
CPT/HCPCS: 36415; 71046; 80053; 81001; 84132; 84484; 85025; 87081; 93005; 96361; 96365; 99291; J2405; J7517